=== PATIENT | male | born 1975 | race Caucasian/White ===

== ENCOUNTER 2019-08-12 15:17 | Emergency (ER) | payer OTHER ==
[~2019-08-12] VITALS: Ht 177.8 cm; Wt 81.7 kg
[2019-08-12] MEDS ORDERED: Percocet 7.5-31 EACH PO (17:58)
[2019-08-12] MEDS ORDERED: METPRE4DP PO (17:58)
[2019-08-12] MEDS ORDERED: Robaxin-750750 MG PO (17:58)
== END 2019-08-12 18:42 | disposition home or self-care (01) ==
LOC: ER 15:17
DX: M54.17 Radiculopathy, lumbosacral region (principal); F17.210 Nicotine dependence, cigarettes, uncomplicated; Z88.5 Allergy status to narcotic agent; Z88.8 Allergy status to other drugs, medicaments and biological substances
CPT/HCPCS: J1100; J1170

== ENCOUNTER 2024-11-04 11:05 | Observation (INO) | payer OTHER ==
[~2024-11-04] VITALS: Ht 180.3 cm; Wt 80.4 kg
[~2024-11-04 11:05] MED LIST: METPRE4DP PO; Percocet 7.5-31 EACH PO; Robaxin-750750 MG PO
[2024-11-04] MEDS ORDERED: Ondansetron HCl 2 MG / ML 2ML Vial IV PRN ×2 (11:25→16:10)
[2024-11-04 11:44] LABS: BASOPHILS ABSOLUTE AUTO 0.05 K/mm3 (0.00-0.23); BASOPHILS PERCENT AUTO 1 % (0-2); EOSINOPHILS ABSOLUTE AUTO 0.06 K/mm3 (0.00-0.68); EOSINOPHILS PERCENT AUTO 1 % (0-6); Hematocrit 41.3 % (37.0-53.0); Hemoglobin 14.6 g/dL (13.5-17.5); IMMATURE GRAN ABSOLUTE AUTO 0.01 K/mm3 (0.00-0.10); IMMATURE GRAN PERCENT AUTO 0 % (0-1); LYMPHOCYTES ABSOLUTE AUTO 1.46 K/mm3 (0.84-5.20); LYMPHOCYTES PERCENT AUTO 29 % (21-46); MONOCYTES ABSOLUTE AUTO 0.56 K/mm3 (0.16-1.47); MONOCYTES PERCENT AUTO 11 % (4-13); Mean Corpuscular HGB 29.1 pg (26.0-34.0); Mean Corpuscular HGB Conc 35.4 g/dL (31.5-36.5); Mean Corpuscular Volume 82 fL (80-100); Mean Platelet Volume 10.7 fL (9.1-12.4); NEUTROPHILS ABSOLUTE AUTO 2.94 K/mm3 (1.96-9.15); NEUTROPHILS PERCENT AUTO 58 % (41-73); Platelet Count 178 K/mm3 (150-400); RDW Coefficient Variation 12.3 % (11.7-14.2); RDW Standard Deviation 37.2 fL (35.1-46.3); Red Blood Cell Count 5.01 M/mm3 (4.30-5.90); White Blood Cell Count 5.08 K/mm3 (4.00-11.30)
[2024-11-04 13:47] LABS: Albumin, Blood 4.1 g/dL (3.4-5.0); Albumin/Globulin Ratio 1.3 (0.8-1.8); Bilirubin, Total 0.9 mg/dL (0.1-1.0); Bun/Creatinine Ratio 14.7 (12.0-20.0); Calcium, Blood 9.4 mg/dL (8.5-10.1); Creatinine, Blood 1.09 mg/dL (0.60-1.20); Globulin, Blood 3.2 g/dL (2.2-4.0); Potassium, Blood 4.3 mmol/L (3.5-5.5); Total Protein, Blood 7.3 g/dL (6.4-8.2)
--- NOTE | 2024-11-04 17:31 | NUR ---
DISCHARGE REVIEWED DISCHARGE INSTRUCTIONS W/PT AND WHO VERBALIZED UNDERSTANDING, IV REMOVED, NEW SCRIPTS FAXED TO [facility] TRANSPORTED VIA WHEELCHAIR TO DISCHARGE IN PRIVATE VEHICLE WITH RESPONSIBLE ENGINEERING ANALYST AT 1724 BY ED.
[2024-11-04 18:01] VITALS: BP 127/78
[2024-11-04] MEDS ORDERED: MULVITA PO (18:38)
[2024-11-04] MEDS ORDERED: ASCO500 PO (18:39)
[2024-11-04] MEDS ORDERED: ZINC15 (18:39)
[2024-11-04] MEDS ORDERED: MAGCHL64ER (18:39)
[2024-11-04] MEDS ORDERED: Vitamin D1000 UNI1 PO (18:40)
--- NOTE | 2024-11-04 19:03 | NUR ---
DAY SUMMARY NEW ER ADMIT THIS SHIFT, A&OX4, DENIES PAIN, NS 79 ON TELE, REPORT GIVEN TO EVANS GÓMEZ
[2024-11-04 20:01] VITALS: BP 116/75
[2024-11-04 23:57] VITALS: BP 121/75
--- NOTE | 2024-11-05 03:50 | NUR ---
SHIFT SUMMARY ADMITTED FOR CHEST PAIN. FULL CODE. DENIES CP THIS SHIFT. PLAN IS FOR STRESS TEST TODAY. NPO SINCE MIDNIGHT. A&O X4, INDEPENDENT, ON RA. STRONG GENETIC RISK FOR CARDIAC PROBLEMS NOTED. VA PATIENT. TELEMETRY: NSR @ 59 BPM. HE LIVES WITH HIS .
[2024-11-05 04:30] VITALS: BP 113/65
[2024-11-05 06:04] LABS: CHOL/HDL RATIO 3.2; Cholesterol 177 mg/dL (50-200); HDL Cholesterol 55 mg/dL (>39); LDL/HDL RATIO 1.9; Low Density Lipoprotein Chol 105 mg/dL (0-110); Triglycerides 86 mg/dL (30-160); Very Low Density Lipoprot Chol 17 mg/dL (6-32)
[2024-11-05 07:15] VITALS: BP 119/75
[2024-11-05] MEDS ORDERED: Aspirin 81 MG Chew PO SCH (09:00)
[2024-11-05 10:53] VITALS: BP 117/78
[2024-11-05] MEDS ORDERED: Regadenoson 0.4 MG/5 ML SYRINGE ONE (13:10)
[2024-11-05] MEDS ORDERED: Aminophylline 250MG / 10ML 10 ML Vial ONE (13:10)
[2024-11-05 15:41] VITALS: BP 118/74
--- NOTE | 2024-11-05 17:10 | NUR ---
DISCHARGE NOTE PATIENT A/OX4, ABLE TO MAKE NEEDS KNOWN. PLEASANT AND COOPERATIVE. STRESS TEST COMPLETED THIS SHIFT, PATIENT TOELRATED WELL. MD DISCUSSED RESULTS WITH PATIENT AND FAMILY THIS EVENING. NO NEW MEDICATIONS ORDERED, RECOMMENDED FOLLOW UP APPOINTMENT WITH [place]. PATIENT AGREEABLE TO PLAN. HEART MONITOR AND IV REMOVED PRIOR TO DISCHARGE. PATIENT DECLINED WHEELCHAIR TRANSPORTATION TO FAMILY VEHCILE SO THIS RN WALKED PATIENT OUT OF THE HOSPITAL WITH FAMILY AT BEDSIDE. NO OTHER CONCENRS. ALL QUESTIONS ANSWERED AT TIME OF DISCHARGE.
== END 2024-11-05 17:01 | disposition home or self-care (01) ==
LOC: ER 11:05 → MEDS 16:07 → ENPENDDIS 11-05 16:16 → MEDS 11-05 16:29
PROVIDERS: Emergency Medicine; ADMIT Internal Medicine
DX: R07.89 Other chest pain (principal); I10 Essential (primary) hypertension; Z87.891 Personal history of nicotine dependence; Z88.8 Allergy status to other drugs, medicaments and biological substances; Z79.899 Other long term (current) drug therapy
CPT/HCPCS: 36415; 71046; 78452; 80053; 80061; 83690; 84484; 85025; 93005; 93010; 93017; 99285-25; A9270; A9500; G0378; J0280; J2785